=== PATIENT | female | born 1960 | race American Indian/Alaskan Native ===

== ENCOUNTER 2021-05-24 08:14 | Emergency (ER) | payer OTHER ==
[2021-05-24] MEDS ORDERED: ONDANSETRON 4 MG/2 ML INJ IM ONE (08:30)
[2021-05-24] MEDS ORDERED: ACETAMINOPHEN 500 MG TAB PO ONE (08:30)
--- NOTE | 2021-05-24 08:36 | Emergency Department Report ---
ED General Adult HPI - General Chief complaint: Back Pain/Injury Stated complaint: COVID POS, SOB Time Seen by Provider: 05/24/21 08:20 Source: patient Mode of arrival: Ambulatory Limitations: No Limitations - History of Present Illness Initial comments: Patient is 61 years old female with history of hypertension and gout. Patient stated that she was recently diagnosed with COVID-19. Patient also reported that she is fully vaccinated against Covid vaccine last dose was in April 26. Patient presented to the ED complaining of lower back pain associated with shortness of breath and nausea. Patient denied any fever or chills. Patient stated that she talk to her primary care physician and asked her to come to the ER to make sure that she does not have a kidney infection. Patient reported chills but no fever. No chest pain. Severity scale (0 -10): 9 - Related Data Home Medications Medication Instructions Recorded Confirmed Last Taken Colchicine [Colcrys] 0.6 mg PO DAILY 04/24/21 04/24/21 Unknown Famotidine [Pepcid] 10 mg PO DAILY 04/24/21 04/24/21 Unknown Fenofibrate 40 mg PO DAILY 04/24/21 04/24/21 Unknown Pravastatin [Pravachol] 20 mg PO QHS 04/24/21 04/24/21 Unknown Allergies Allergy/AdvReac Type Severity Reaction Status Date / Time naproxen [From Aleve] Allergy Hives Verified 04/22/21 17:09 ED Review of Systems ROS: Stated complaint: COVID POS, SOB Other details as noted in HPI Comment: All other systems reviewed and negative Constitutional: chills. denies: fever Respiratory: cough, shortness of breath Cardiovascular: palpitations. denies: chest pain Gastrointestinal: nausea. denies: abdominal pain, vomiting, diarrhea, constipation, hematemesis Musculoskeletal: denies: back pain Neurological: denies: headache, weakness, numbness, paresthesias, confusion ED Past Medical Hx - Past Medical History Hx Hypertension: Yes Hx Congestive Heart Failure: No Hx Diabetes: Yes Hx Asthma: No Hx COPD: No Additional medical history: GOUT/ HIGH CHOLESTROL - Surgical History Additional Surgical History: C SECTION X 2 / CYST REMOVAL X 1 / GASTRIC SLEEVE - Social History Smoking Status: Never Smoker - Medications Home Medications: Home Medications Medication Instructions Recorded Confirmed Last Taken Type Colchicine [Colcrys] 0.6 mg PO DAILY 04/24/21 04/24/21 Unknown History Famotidine [Pepcid] 10 mg PO DAILY 04/24/21 04/24/21 Unknown History Fenofibrate 40 mg PO DAILY 04/24/21 04/24/21 Unknown History Pravastatin [Pravachol] 20 mg PO QHS 04/24/21 04/24/21 Unknown History ED Physical Exam - General Limitations: No Limitations General appearance: alert, in no apparent distress - Head Head exam: Present: atraumatic, normocephalic, normal inspection - Eye Eye exam: Present: normal appearance, PERRL - ENT ENT exam: Present: normal exam, normal orophraynx, mucous membranes moist - Neck Neck exam: Present: normal inspection, full ROM. Absent: tenderness, meningismus - Respiratory Respiratory exam: Present: normal lung sounds bilaterally - Cardiovascular Cardiovascular Exam: Present: regular rate, normal rhythm, normal heart sounds - GI/Abdominal GI/Abdominal exam: Present: soft, normal bowel sounds. Absent: distended, tenderness, guarding, rebound, rigid, organomegaly, mass, bruit, pulsatile mass, hernia - Extremities Exam Extremities exam: Present: normal inspection, full ROM, normal capillary refill. Absent: tenderness - Back Exam Back exam: Present: normal inspection, full ROM. Absent: CVA tenderness (R), CVA tenderness (L) - Neurological Exam Neurological exam: Present: alert, oriented X3, CN II-XII intact, normal gait, reflexes normal - Psychiatric Psychiatric exam: Present: normal mood - Skin Skin exam: Present: warm, intact, normal color ED Course Vital Signs 05/24/21 05/24/21 05/24/21 08:21 13:03 13:05 Temperature 98.5 F 98.8 F 98.8 F Pulse Rate 105 H 73 73 Respiratory 16 14 12 Rate Blood Pressure 103/58 Blood Pressure 113/71 103/58 [Left] O2 Sat by Pulse 96 98 98 Oximetry ED Medical Decision Making - Lab Data Result diagrams: 05/24/21 09:19 05/24/21 09:19 - EKG Data -: EKG Interpreted by Oh EKG shows normal: sinus rhythm Rate: normal - Radiology Data Radiology results: report reviewed - Medical Decision Making Patient is 61 years old female with history of hypertension and gout. Patient stated that she was recently diagnosed with COVID-19. Patient also reported th at she is fully vaccinated against Covid vaccine last dose was in April 26. Patient presented to the ED complaining of lower back pain associated with shortness of breath and nausea. Patient denied any fever or chills. Patient stated that she talk to her primary care physician and asked her to come to the ER to make sure that she does not have a kidney infection. Patient reported chills but no fever. No chest pain. EKG is unremarkable. Labs reviewed and unremarkable also. Patient remained stable with a stable vital sign. Chest x-ray is negative for acute finding. Urine is unremarkable. Patient given prescription for Ultram and Zofran and advised to follow-up with her primary doctor in the next 2 to 3 days and to return to the ER if she develop any new symptoms. Critical care attestation.: If time is entered above; I have spent that time in minutes in the direct care of this critically ill patient, excluding procedure time. ED Disposition Clinical Impression: Acute back pain, Post-COVID chronic joint pain Disposition: HOME / SELF CARE / HOMELESS Is pt being admited?: No Condition: Stable Instructions: Pain Medicine Instructions, Acute Back Pain, Adult Referrals: PRIMARY CARE, [Primary Care Provider] - 3-5 Days
--- NOTE | 2021-05-24 08:58 | XRay Report ---
CHEST 1 VIEW INDICATION: Dyspnea. COMPARISON: 04/22/2021 FINDINGS: Support devices: None. Heart: Within normal limits. Lungs/Pleura: No acute air space or interstitial disease. Additional findings: None. IMPRESSION: No acute findings. No change since 04/22/2021. Signer Name: Eldon Calderon Jr, MD Signed: 05/24/2021 8:54 AM Workstation Name: [id number]
[2021-05-24 10:13] LABS: Basophils # (Auto) 0.1 K/mm3 (0.0-0.1); Basophils % (Auto) 2.2 % (0.0-1.8); Eosinophils % (Auto) 0.7 % (0.0-4.3); Hematocrit 34.6 % (30.3-42.9); Hemoglobin 11.3 gm/dl (10.1-14.3); Lymphocytes # (Auto) 1.1 K/mm3 (1.2-5.4); Lymphocytes % (Auto) 25.5 % (13.4-35.0); Mean Corpuscular HGB Conc 33 % (30-34); Mean Corpuscular Volume 90 fl (79-97); Monocytes # (Auto) 0.4 K/mm3 (0.0-0.8); Monocytes % (Auto) 8.4 % (0.0-7.3); Platelet Count 288 K/mm3 (140-440); Red Blood Count 3.84 M/mm3 (3.65-5.03); Red Cell Distribution Width 17.2 % (13.2-15.2)
[2021-05-24 10:41] LABS: Partial Thromboplastin Time 58.8 Sec. (24.2-36.6)
[2021-05-24 10:57] LABS: Bilirubin,Urine NEG (Negative); Blood,Urine NEG (Negative); Color,Urine Amber (Yellow); Mucus,Urine FEW /HPF
[2021-05-24 10:58] LABS: Protein,Urine >500 mg/dL (Negative)
[2021-05-24 11:09] LABS: BUN/Creatinine Ratio 13; Blood Urea Nitrogen 24 mg/dL (7-17); Calcium 8.9 mg/dL (8.4-10.2); Hemolysis Index 2
[2021-05-24 11:10] LABS: Albumin 3.6 g/dL (3.9-5); Bilirubin,Direct 0.3 mg/dL (0-0.2)
[2021-05-24 13:03] VITALS: BP 103/58
== END 2021-05-24 13:34 | disposition home or self-care (01) ==
LOC: ED 08:14
DX: G89.29 Other chronic pain (principal); M54.5 Low back pain; I10 Essential (primary) hypertension; E78.00 Pure hypercholesterolemia, unspecified; R79.1 Abnormal coagulation profile; E11.9 Type 2 diabetes mellitus without complications; Z98.890 Other specified postprocedural states; Z88.8 Allergy status to other drugs, medicaments and biological substances; Z79.899 Other long term (current) drug therapy
CPT/HCPCS: 36415; 71045; 80048; 80076; 81001; 82140; 84484; 85025; 85610; 85730; 87040; 96372; 99284; J2405

== ENCOUNTER 2021-11-03 05:11 | Emergency (ER) | payer SELFPAY ==
[2021-11-03] MEDS ORDERED: predniSONE 20 MG TAB PO ONE (08:12)
[2021-11-03] MEDS ORDERED: COLCHICINE 0.6 MG TAB PO ONE (08:13)
[2021-11-03] MEDS ORDERED: HYDROcodone/ACETAMINOPHEN 5-325 MG TAB PO ONE (08:13)
--- NOTE | 2021-11-03 09:05 | XRay Report ---
RIGHT KNEE 3 VIEWS INDICATION: pain and swelling R knee. COMPARISON: None. IMPRESSION: Moderate to large joint effusion is identified on the lateral image. Mild osteoarthriti c changes are identified in the medial compartment and patellofemoral space. Mild enthesophytes proje cting from the patella. No acute osseous injury or bone lesion is identified. Signer Name: Eldon Calderon Jr, MD Signed: 11/03/2021 9:01 AM Workstation Name: [id number]
--- NOTE | 2021-11-03 09:24 | Emergency Department Report ---
ED Extremity Problem HPI - General Chief complaint: Extremity Problem,Nontraumatic Stated complaint: SWOLLEN RIGHT LEG Time Seen by Provider: 11/03/21 08:06 Source: patient Mode of arrival: Wheelchair Limitations: No Limitations - History of Present Illness Initial comments: 61 yof with pmh of gout presents to ed for evaluation right knee pain. She stat es that she has had pain and swelling to right knee for past week, denies injury. She states that she has history of gout but this does not feel like a gout flare to her. She denies fever. MD Complaint: extremity pain, extremity swelling, joint swelling -: Gradual, week(s) (1) Location: right, knee History of Same: Yes -: No fever, No associated dyspnea, No associated chest pain Radiation: none Severity scale (0 -10): 10 Quality: aching, constant Consistency: constant Worsens with: weight bearing, walking, palpation Associated Symptoms: denies: chest pain, shortness of breath, fever - Related Data Home Medications Medication Instructions Recorded Confirmed Last Taken Colchicine [Colcrys] 0.6 mg PO DAILY 04/24/21 04/24/21 Unknown Famotidine [Pepcid] 10 mg PO DAILY 04/24/21 04/24/21 Unknown Fenofibrate 40 mg PO DAILY 04/24/21 04/24/21 Unknown Pravastatin [Pravachol] 20 mg PO QHS 04/24/21 04/24/21 Unknown Previous Rx's Medication Instructions Recorded Last Taken Type Ondansetron [Zofran Odt] 4 mg PO Q8HR PRN #14 tab.rapdis 05/24/21 Unknown Rx traMADoL [Ultram] 50 mg PO Q6HR PRN #14 tablet 05/24/21 Unknown Rx methylPREDNISolone [Medrol 4MG 4 mg PO DAILY #1 pack 11/03/21 Unknown Rx DOSEPAK (21 tabs)] Allergies Allergy/AdvReac Type Severity Reaction Status Date / Time naproxen [From Aleve] Allergy Hives Verified 04/22/21 17:09 ED Review of Systems ROS: Stated complaint: SWOLLEN RIGHT LEG Other details as noted in HPI Comment: All other systems reviewed and negative Constitutional: denies: chills, diaphoresis, fever, malaise, weakness Eyes: denies: eye pain, eye discharge ENT: denies: ear pain, dental pain, congestion Respiratory: denies: cough, shortness of breath, SOB with exertion, SOB at rest Cardiovascular: denies: chest pain, palpitations, dyspnea on exertion, orthopnea, edema, syncope, paroxysmal nocturnal dyspnea Endocrine: no symptoms reported Gastrointestinal: denies: abdominal pain, nausea, vomiting Genitourinary: denies: urgency, dysuria, frequency, hematuria, discharge Musculoskeletal: denies: back pain Skin: denies: rash, lesions Neurological: denies: headache, weakness, numbness Hematological/Lymphatic: denies: easy bleeding, easy bruising ED Past Medical Hx - Past Medical History Hx Hypertension: Yes Hx Congestive Heart Failure: No Hx Diabetes: Yes Hx Asthma: No Hx COPD: No Additional medical history: GOUT/ HIGH CHOLESTROL - Surgical History Additional Surgical History: C SECTION X 2 / CYST REMOVAL X 1 / GASTRIC SLEEVE - Social History Smoking Status: Never Smoker - Medications Home Medications: Home Medications Medication Instructions Recorded Confirmed Last Taken Type Colchicine [Colcrys] 0.6 mg PO DAILY 04/24/21 04/24/21 Unknown History Famotidine [Pepcid] 10 mg PO DAILY 04/24/21 04/24/21 Unknown History Fenofibrate 40 mg PO DAILY 04/24/21 04/24/21 Unknown History Pravastatin [Pravachol] 20 mg PO QHS 04/24/21 04/24/21 Unknown History Ondansetron [Zofran Odt] 4 mg PO Q8HR PRN #14 tab.rapdis 05/24/21 Unknown Rx traMADoL [Ultram] 50 mg PO Q6HR PRN #14 tablet 05/24/21 Unknown Rx methylPREDNISolone [Medrol 4MG 4 mg PO DAILY #1 pack 11/03/21 Unknown Rx DOSEPAK (21 tabs)] ED Physical Exam - General Limitations: No Limitations General appearance: alert, in no apparent distress - Head Head exam: Present: atraumatic, normocephalic - Eye Eye exam: Present: normal appearance. Absent: conjunctival injection - Neck Neck exam: Present: normal inspection - Respiratory Respiratory exam: Absent: respiratory distress - Cardiovascular Cardiovascular Exam: Present: regular rate - GI/Abdominal GI/Abdominal exam: Absent: distended - Expanded Lower Extremity Exam Right Knee exam: Present: tenderness, swelling, effusion. Absent: ecchymosis, def ormity, dislocation, erythema Lower Leg exam: Present: normal inspection. Absent: tenderness, swelling Ankle exam: Present: normal inspection, full ROM Foot/Toe exam: Present: normal inspection Neuro vascular tendon exam: Absent: no vascular compromise, pulse deficit, abnormal cap refill, extremity cold to touch Gait: Positive: observed and limited by pain - Back Exam Back exam: Present: normal inspection. Absent: tenderness, CVA tenderness (R), CVA tenderness (L), vertebral tenderness - Neurological Exam Neurological exam: Present: alert, oriented X3 - Psychiatric Psychiatric exam: Present: normal affect, normal mood - Skin Skin exam: Present: warm, dry, intact, normal color ED Course Vital Signs 11/03/21 11/03/21 07:44 09:35 Temperature 98.6 F 97.7 F Pulse Rate 82 67 Respiratory 18 18 Rate Blood Pressure 132/73 142/88 O2 Sat by Pulse 100 100 Oximetry ED Medical Decision Making - Radiology Data Radiology results: report reviewed, image reviewed Right knee xray IMPRESSION: Moderate to large joint effusion is identified on the lateral image. Mild osteoarthritic changes are identified in the medial compartment and patellofemoral space. Mild enthesophytes projecting from the patella. No acute osseous injury or bone lesion is identified. - Medical Decision Making 61 yof with pmh of gout presents to ed for evaluation right knee pain. She states that she has had pain and swelling to right knee for past week, denies injury. She states that she has history of gout but this does not feel like a gout flare to her. She denies fever. Right knee xray noted to have effusion but without any acute fracture or dislocation. She will be treated with 6 day coarse of steroids and advised to follow up with orthopedics for further evaluation and management. She verbalized understanding of and agreement with plan of care. Critical care attestation.: If time is entered above; I have spent that time in minutes in the direct care of this critically ill patient, excluding procedure time. ED Disposition Clinical Impression: Knee effusion, right Disposition: 01 HOME / SELF CARE / HOMELESS Is pt being admited?: No Does the pt Need Aspirin: No Condition: Stable Instructions: Knee Effusion, [id number] Additional Instructions: Take medications as prescribed. Follow-up with primary care provider or orthopedics for further evaluation and management. Return to the ER for any concerning symptoms. Prescriptions: methylPREDNISolone [Medrol 4MG DOSEPAK (21 tabs)] 4 mg PO DAILY #1 pack Referrals: MONTSERRAT HALE MD [Staff Physician] - 3-5 Days Time of Disposition: 09:24
[2021-11-03 09:40] VITALS: BP 142/88
== END 2021-11-03 09:39 | disposition home or self-care (01) ==
LOC: ED 05:11
DX: M25.461 Effusion, right knee (principal); F17.200 Nicotine dependence, unspecified, uncomplicated; Z88.6 Allergy status to analgesic agent; I10 Essential (primary) hypertension; E11.9 Type 2 diabetes mellitus without complications
CPT/HCPCS: 99283

== ENCOUNTER 2021-11-25 23:32 | Inpatient (IN) | payer SELFPAY ==
--- NOTE | 2021-11-25 23:59 | Consultation ---
Medications and Allergies Allergies Allergy/AdvReac Type Severity Reaction Status Date / Time naproxen [From Aleve] Allergy Hives Verified 04/22/21 17:09 Home Medications Medication Instructions Recorded Confirmed Last Taken Type Colchicine [Colcrys] 0.6 mg PO DAILY 04/24/21 04/24/21 Unknown History Famotidine [Pepcid] 10 mg PO DAILY 04/24/21 04/24/21 Unknown History Fenofibrate 40 mg PO DAILY 04/24/21 04/24/21 Unknown History Pravastatin [Pravachol] 20 mg PO QHS 04/24/21 04/24/21 Unknown History Ondansetron [Zofran Odt] 4 mg PO Q8HR PRN #14 tab.rapdis 05/24/21 Unknown Rx traMADoL [Ultram] 50 mg PO Q6HR PRN #14 tablet 05/24/21 Unknown Rx methylPREDNISolone [Medrol 4MG 4 mg PO DAILY #1 pack 11/03/21 Unknown Rx DOSEPAK (21 tabs)] Assessment and Plan [facility] Consult Note # Demographics Consult Type: Acute Stroke Level 1 (0-4.5 hrs) Patient Location: Emergency Room First Name: Mariluz Last Name: Ronel Date of : 1960 Age: 61 Gender: Female Facility: [facility] Time of Initial Page ( Time): 11/25/2021, 23:25 Time of Return Call (Eastern Time): 11/25/2021, 23:25 # HPI History: 61F at 22:30 heard to fall in kitchen. She says she passed out. Noted by EMS to have left droop and slurring of speech. No unilateral weakness noted. Patient denies blood thinner use. # Scores Time of exam and NIHSS ( Time): 11/25/2021, 23:57 Level of Consciousness 1a: [0] = Alert; keenly responsive LOC Questions 1b: [0] = Answers both questions correctly LOC Commands 1c: [0] = Performs both tasks correctly Best Gaze 2: [0] = Normal Visual 3: [0] = No visual loss Facial Palsy 4: [1] = Minor paralysis Motor Arm Left 5a: [0] = No drift Motor Arm Right 5b: [0] = No drift Motor Leg Left 6a: [0] = No drift Motor Leg Right 6b: [0] = No drift Limb Ataxia 7: [0] = Absent Sensory 8: [0] = Normal Best Language 9: [0] = No aphasia Dysarthria 10: [1] = [id number] dysarthria Extinction and Inattention 11: [0] = No abnormality NIHSS Total: 2 # Assessment Impression: Ischemic Stroke (Acute) with currently estimated to be non-disabling deficit as best I can determine. # Plan Thrombolytic/Intervention: NOT IV Thrombolysis or IA Intervention candidate Thrombolytic Exclusion (< 3 hour window): non-disabling deficit Intraarterial Exclusion: other pending CTA head/neck. Target Blood Pressure: SBP < 220 Imaging: (urgency: STAT): CT Angiogram Head and CT Angiogram Neck Imaging: (urgency: routine): MRI Brain without contrast Medication: aspirin 81 mg daily start statin with goal of LDL < 70 Other: LDL < 70 If patient has any neurological deterioration please call me back immediately permissive hypertension telemetry monitoring I have discussed my recommendations with the referring provider Disposition: admit # Logistics Telemedicine: Interactive 2 way audio and visual telecommunication technology was utilized during this visit
--- NOTE | 2021-11-26 00:02 | Cat Scan Report ---
CT HEAD WITHOUT CONTRAST INDICATION / CLINICAL INFORMATION: CODE STROKE PROTOCOL!!! Altered Mental Status. TECHNIQUE: CT head was performed without administration of intravenous contrast. All CT scans at this location are performed using CT dose reduction for ALARA by means of automated exposure control. COMPARISON: None available. FINDINGS: CEREBRAL PARENCHYMA: No significant abnormality. No acute territorial infarct. HEMORRHAGE: None. EXTRA-AXIAL SPACES: Normal in size and morphology for the patient's age. VENTRICULAR SYSTEM: Normal in size and morphology for the patient's age. MIDLINE SHIFT / HERNIATION: None. CEREBELLUM / BRAINSTEM: No significant abnormality. ORBITS: No significant abnormality. SOFT TISSUES: No significant abnormality. SKULL: No significant abnormality. PARANASAL SINUSES / MASTOID AIR CELLS: Normal as visualized. ADDITIONAL FINDINGS: None. IMPRESSION: 1. No acute intracranial abnormality. CODE STROKE Time of Communication (NOTE TELLER/CDT): 2256 hours Licensed Practitioner Receiving Report: Dr. Loaiza Signer Name: Andrea Gracia II, MD Signed: 11/25/2021 11:58 PM Workstation Name: [id number]
[2021-11-26 00:06] LABS: Basophils % (Auto) 0.7 % (0.0-1.8); Eosinophils # (Auto) 0.2 K/mm3 (0.0-0.4); Eosinophils % (Auto) 2.8 % (0.0-4.3); Hematocrit 41.3 % (30.3-42.9); Hemoglobin 13.9 gm/dl (10.1-14.3); Lymphocytes # (Auto) 1.6 K/mm3 (1.2-5.4); Lymphocytes % (Auto) 27.4 % (13.4-35.0); Mean Corpuscular HGB Conc 34 % (30-34); Mean Corpuscular Volume 90 fl (79-97); Monocytes # (Auto) 0.7 K/mm3 (0.0-0.8); Monocytes % (Auto) 10.9 % (0.0-7.3); Platelet Count 264 K/mm3 (140-440); Red Blood Count 4.57 M/mm3 (3.65-5.03); Red Cell Distribution Width 15.6 % (13.2-15.2)
[2021-11-26 00:17] LABS: INR 0.84 (0.87-1.13)
[2021-11-26 00:18] LABS: Thrombin Time 16.5 Sec. (15.1-19.6)
[2021-11-26 00:23] LABS: Creatine Kinase MB 1.5 ng/mL (0.0-4.0)
[2021-11-26 00:25] LABS: Alanine Aminotransferase 14 units/L (7-56); Albumin 3.4 g/dL (3.9-5); BUN/Creatinine Ratio 20; Blood Urea Nitrogen 22 mg/dL (7-17); Calcium 8.4 mg/dL (8.4-10.2); Hemolysis Index 11
--- NOTE | 2021-11-26 02:13 | Cat Scan Report ---
CT angio neck, CT angio head INDICATION / CLINICAL INFORMATION: POST-CODE STROKE PROTOCOL!!! Stroke-Like symptoms. TECHNIQUE: CT angiography of head and neck was performed prior to and following administration of 100 cc of Omnipaque 350 intravenous contrast. In addition to axial source images, reconstructed coronal and sagittal MPR series as well as thin slab coronal and sagittal MIP series were provided. . All C T scans at this location are performed using CT dose reduction for ALARA by means of automated exposu re control. COMPARISON: None available. FINDINGS: VASCULAR FINDINGS: INTRACRANIAL CIRCULATION: RIGHT ICA: The right petrous, cavernous, supraclinoid segments of the ICA demonstrate no significant abnormalities. The right supraclinoid bifurcation is patent. The right A1 segment is patent. RIGHT TIMMY: The right anterior cerebral artery demonstrates no evidence of aneurysm, severe stenosis, or occlusion. RIGHT MCA: The right MCA demonstrates no evidence of large vessel occlusion, aneurysm formation, or s evere stenosis. LEFT ICA: The left petrous, cavernous, supraclinoid segments of the ICA demonstrate no significant ab normalities. The left supraclinoid bifurcation is patent. The left A1 segment is patent. LEFT TIMMY: The left TIMMY demonstrates no evidence of aneurysm formation, occlusion, or severe stenosis. LEFT MCA: The left MCA demonstrates no evidence of large vessel occlusion, aneurysm formation, or sev ere stenosis. ANTERIOR COMMUNICATING ARTERY: At the junction of the anterior communicating artery and left A1 segme nt, a saccular aneurysm measuring 4.5 x 3.9 x 3.1 cm is demonstrated no evidence of rupture. POSTERIOR COMMUNICATING ARTERIES: Posterior communicating arteries are thought to be anatomically abs ent. At the expected location of the left posterior communicating artery origin, there is a small sac cular aneurysm measuring 3 mm abutting the posterior margin of the left supraclinoid ICA. Additional considerations could reflect prominent infundibulum. VERTEBRAL CONFLUENCE: The vertebral confluence demonstrates no significant abnormality. BASILAR ARTERY: Basilar artery demonstrates no significant abnormality. Bifurcation and bilateral P1 segments demonstrate patency without evidence of aneurysm formation, significant stenosis, or occlusi on. RIGHT VENEER REPAIRER MACHINE: The right VENEER REPAIRER MACHINE demonstrates no evidence of occlusion, aneurysm formation, or severe stenosi s. LEFT VENEER REPAIRER MACHINE: The left VENEER REPAIRER MACHINE demonstrates no evidence of occlusion, aneurysm formation, or severe stenosis. DURAL SINUSES AND CORTICAL DURAL VEINS: The dural sinuses and cortical dural veins demonstrate no sig nificant abnormalities. NONVASCULAR FINDINGS: The intracranial contents, intraorbital contents, paranasal sinuses, mastoid air cells, soft tissues and musculature of the face, soft tissues and musculature of the neck, thyroid, and upper chest demon strate no significant abnormalities. IMPRESSION: 1. 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 No evidence of acute hemorrhage/contrast extravasation. 2. No large vessel occlusion. 3. Dural sinuses are widely patent. Signer Name: Andrea Gracia II, MD Signed: 11/26/2021 2:08 AM Workstation Name: [id number]
--- NOTE | 2021-11-26 02:13 | Cat Scan Report ---
CT angio neck, CT angio head INDICATION / CLINICAL INFORMATION: POST-CODE STROKE PROTOCOL!!! Stroke-Like symptoms. TECHNIQUE: CT angiography of head and neck was performed prior to and following administration of 100 cc of Omnipaque 350 intravenous contrast. In addition to axial source images, reconstructed coronal and sagittal MPR series as well as thin slab coronal and sagittal MIP series were provided. . All C T scans at this location are performed using CT dose reduction for ALARA by means of automated exposu re control. COMPARISON: None available. FINDINGS: VASCULAR FINDINGS: INTRACRANIAL CIRCULATION: RIGHT ICA: The right petrous, cavernous, supraclinoid segments of the ICA demonstrate no significant abnormalities. The right supraclinoid bifurcation is patent. The right A1 segment is patent. RIGHT TIMMY: The right anterior cerebral artery demonstrates no evidence of aneurysm, severe stenosis, or occlusion. RIGHT MCA: The right MCA demonstrates no evidence of large vessel occlusion, aneurysm formation, or s evere stenosis. LEFT ICA: The left petrous, cavernous, supraclinoid segments of the ICA demonstrate no significant ab normalities. The left supraclinoid bifurcation is patent. The left A1 segment is patent. LEFT TIMMY: The left TIMMY demonstrates no evidence of aneurysm formation, occlusion, or severe stenosis. LEFT MCA: The left MCA demonstrates no evidence of large vessel occlusion, aneurysm formation, or sev ere stenosis. ANTERIOR COMMUNICATING ARTERY: At the junction of the anterior communicating artery and left A1 segme nt, a saccular aneurysm measuring 4.5 x 3.9 x 3.1 cm is demonstrated no evidence of rupture. POSTERIOR COMMUNICATING ARTERIES: Posterior communicating arteries are thought to be anatomically abs ent. At the expected location of the left posterior communicating artery origin, there is a small sac cular aneurysm measuring 3 mm abutting the posterior margin of the left supraclinoid ICA. Additional considerations could reflect prominent infundibulum. VERTEBRAL CONFLUENCE: The vertebral confluence demonstrates no significant abnormality. BASILAR ARTERY: Basilar artery demonstrates no significant abnormality. Bifurcation and bilateral P1 segments demonstrate patency without evidence of aneurysm formation, significant stenosis, or occlusi on. RIGHT PLAYER DEVELOPMENT EXECUTIVE: The right PLAYER DEVELOPMENT EXECUTIVE demonstrates no evidence of occlusion, aneurysm formation, or severe stenosi s. LEFT PLAYER DEVELOPMENT EXECUTIVE: The left PLAYER DEVELOPMENT EXECUTIVE demonstrates no evidence of occlusion, aneurysm formation, or severe stenosis. DURAL SINUSES AND CORTICAL DURAL VEINS: The dural sinuses and cortical dural veins demonstrate no sig nificant abnormalities. NONVASCULAR FINDINGS: The intracranial contents, intraorbital contents, paranasal sinuses, mastoid air cells, soft tissues and musculature of the face, soft tissues and musculature of the neck, thyroid, and upper chest demon strate no significant abnormalities. IMPRESSION: 1. 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 No evidence of acute hemorrhage/contrast extravasation. 2. No large vessel occlusion. 3. Dural sinuses are widely patent. Signer Name: Andrea Gracia II, MD Signed: 11/26/2021 2:08 AM Workstation Name: [id number]
--- NOTE | 2021-11-26 03:59 | XRay Report ---
LEFT FOOT 3 VIEWS. INDICATION / CLINICAL INFORMATION: footb inj. deformed toe COMPARISON: None available. FINDINGS: BONES / JOINT(S): An acute fracture involving the base of the fourth toe proximal phalanx is present with minimal lateral angulation of the distal fracture fragments. No involvement of the articular jesus face. No significant arthritis. SOFT TISSUES: No significant abnormality. ADDITIONAL FINDINGS: None. IMPRESSION: 1. Acute fracture involving the base of the fourth toe proximal phalanx. Signer Name: Andrea Gracia II, MD Signed: 11/26/2021 3:55 AM Workstation Name: [id number]
[2021-11-26] MEDS ORDERED: MORPHINE 2 MG/1 ML INJ IV PRN (04:18)
[2021-11-26] MEDS ORDERED: HYDROmorphone 1 MG/1 ML INJ IV PRN (04:18)
[2021-11-26] MEDS ORDERED: ACETAMINOPHEN 325 MG TAB PO PRN (04:18)
[2021-11-26] MEDS ORDERED: ONDANSETRON 4 MG/2 ML INJ IV PRN (04:18)
--- NOTE | 2021-11-26 04:28 | History and Physical Report ---
History of Present Illness Date of examination: 11/26/21 Date of admission: 11/26/21 Chief complaint: Fall Passed out History of present illness: 61 with history of hypertension, diabetes, gout, high cholesterol was brought to the emergency room because of fall in kitchen at 22.30. She says she passed out. Noted by EMS to have left droop and slurring of speech. No unilateral weakness noted. Patient denies blood thinner use. Initial CT scan is negative, subsequently patient was seen and evaluated by the ER physician so we are going to admit the patient we will put the patient on CVA pathway we consult neurology for evaluation and order MRI of the brain Past History Past Medical History: diabetes, hypertension, hyperlipidemia, other (Gout) Past Surgical History: Other (C SECTION X 2 / CYST REMOVAL X 1 / GASTRIC SLEEVE) Social history: other (Never a smoker) Family history: no significant family history Medications and Allergies Allergies Allergy/AdvReac Type Severity Reaction Status Date / Time naproxen [From Aleve] Allergy Hives Verified 04/22/21 17:09 Home Medications Medication Instructions Recorded Confirmed Last Taken Type Colchicine [Colcrys] 0.6 mg PO DAILY 04/24/21 04/24/21 Unknown History Famotidine [Pepcid] 10 mg PO DAILY 04/24/21 04/24/21 Unknown History Fenofibrate 40 mg PO DAILY 04/24/21 04/24/21 Unknown History Pravastatin [Pravachol] 20 mg PO QHS 04/24/21 04/24/21 Unknown History Ondansetron [Zofran Odt] 4 mg PO Q8HR PRN #14 tab.rapdis 05/24/21 Unknown Rx traMADoL [Ultram] 50 mg PO Q6HR PRN #14 tablet 05/24/21 Unknown Rx methylPREDNISolone [Medrol 4MG 4 mg PO DAILY #1 pack 11/03/21 Unknown Rx DOSEPAK (21 tabs)] Active Meds: Active Medications Acetaminophen (Acetaminophen 325 Mg Tab) 650 mg PO Q4H PRN PRN Reason: Pain MILD(1-3)/Fever >100.5/WALKER Aspirin (Aspirin 325 Mg Tab) 325 mg PO QDAY CHANTAL Atorvastatin Calcium (Atorvastatin 40 Mg Tab) 40 mg PO QHS CHANTAL Colchicine (Colchicine 0.6 Mg Tab) 0.6 mg PO DAILY CHANTAL Famotidine (Famotidine 20 Mg Tab) 20 mg PO BID [facility] Heparin Sodium (Porcine) (Heparin 5,000 Unit/1 Ml Vial) 5,000 unit SUB-Q Q12HR CHANTAL Hydromorphone HCl (Hydromorphone 1 Mg/1 Ml Inj) 0.5 mg IV Q3H PRN PRN Reason: Pain , Severe (7-10) Sodium Chloride (Nacl 0.9% 1000 Ml) 1,000 mls @ 100 mls/hr IV DIRECT CHANTAL Miscellaneous Medication (Fenofibrate [Fenofibrate]) 40 mg PO DAILY [facility] Morphine Sulfate (Morphine 2 Mg/1 Ml Inj) 2 mg IV Q4H PRN PRN Reason: Pain, Moderate (4-6) Ondansetron HCl (Ondansetron 4 Mg/2 Ml Inj) 4 mg IV Q8H PRN PRN Reason: Nausea And Vomiting Sodium Chloride (Sodium Chloride 0.9% 10 Ml Flush Syringe) 10 ml IV BID CHANTAL Sodium Chloride (Sodium Chloride 0.9% 10 Ml Flush Syringe) 10 ml IV PRN PRN PRN Reason: LINE FLUSH Sodium Chloride (Sodium Chloride 0.9% 10 Ml Flush Syringe) 10 ml INJ PRN PRN PRN Reason: LINE FLUSH Review of Systems All systems: negative Constitutional: fatigue, weakness Cardiovascular: syncope Neurological: change in speech, other (Facial droop.) Exam - Constitutional Vitals: Temp Pulse Resp BP Pulse Ox 98.9 F 88 16 160/96 98 11/25/21 23:34 11/25/21 23:34 11/25/21 23:34 11/25/21 23:34 11/25/21 23:34 General appearance: Present: no acute distress, well-nourished - EENT Eyes: Present: PERRL ENT: hearing intact, clear oral mucosa - Neck Neck: Present: supple, normal ROM - Respiratory Respiratory effort: normal Respiratory: bilateral: CTA - Cardiovascular Heart Sounds: Present: S1 & S2. Absent: rub, click - Extremities Extremities: pulses symmetrical, No edema Peripheral Pulses: within normal limits - Abdominal General gastrointestinal: Present: soft, non-tender, non-distended, normal bowel sounds Female genitourinary: Present: normal - Integumentary Integumentary: Present: clear, warm, dry - Musculoskeletal Musculoskeletal: gait normal, strength equal bilaterally - Psychiatric Psychiatric: appropriate mood/affect, intact judgment & insight - Neurologic Neurologic: CNII-XII intact, moves all extremities HEART Score - HEART Score Troponin: Troponin T < 0.010 ng/mL (0.00-0.029) 11/25/21 23:54 Results - Labs CBC & Chem 7: 11/25/21 23:54 11/25/21 23:54 Labs: Laboratory Last Values WBC 6.0 K/mm3 (4.5-11.0) 11/25/21 23:54 RBC 4.57 M/mm3 (3.65-5.03) 11/25/21 23:54 Hgb 13.9 gm/dl (10.1-14.3) 11/25/21 23:54 Hct 41.3 % (30.3-42.9) 11/25/21 23:54 MCV 90 fl (79-97) 11/25/21 23:54 MCH 30 pg (28-32) 11/25/21 23:54 MCHC 34 % (30-34) 11/25/21 23:54 RDW 15.6 % (13.2-15.2) H 11/25/21 23:54 Plt Count 264 K/mm3 (140-440) 11/25/21 23:54 Lymph % (Auto) 27.4 % (13.4-35.0) 11/25/21 23:54 [place] % (Auto) 10.9 % (0.0-7.3) H 11/25/21 23:54 Eos % (Auto) 2.8 % (0.0-4.3) 11/25/21 23:54 Baso % (Auto) 0.7 % (0.0-1.8) 11/25/21 23:54 Lymph # (Auto) 1.6 K/mm3 (1.2-5.4) 11/25/21 23:54 [place] # (Auto) 0.7 K/mm3 (0.0-0.8) 11/25/21 23:54 Eos # (Auto) 0.2 K/mm3 (0.0-0.4) 11/25/21 23:54 Baso # (Auto) 0.0 K/mm3 (0.0-0.1) 11/25/21 23:54 Seg Neutrophils % 58.2 % (40.0-70.0) 11/25/21 23:54 Seg Neutrophils # 3.5 K/mm3 (1.8-7.7) 11/25/21 23:54 PT 12.4 Sec. (12.2-14.9) 11/25/21 23:54 INR 0.84 (0.87-1.13) L 11/25/21 23:54 APTT 27.0 Sec. (24.2-36.6) 11/25/21 23:54 Thrombin Time 16.5 Sec. (15.1-19.6) 11/25/21 23:54 Sodium 137 mmol/L (137-145) 11/25/21 23:54 Potassium 3.7 mmol/L (3.6-5.0) 11/25/21 23:54 Chloride 103.5 mmol/L (98-107) 11/25/21 23:54 Carbon Dioxide 20 mmol/L (22-30) L 11/25/21 23:54 Anion Gap 17 mmol/L 11/25/21 23:54 BUN 22 mg/dL (7-17) H 11/25/21 23:54 Creatinine 1.1 mg/dL (0.6-1.2) 11/25/21 23:54 Estimated GFR > 60 ml/min 11/25/21 23:54 BUN/Creatinine Ratio 20 % 11/25/21 23:54 Glucose 141 mg/dL (65-100) H 11/25/21 23:54 Calcium 8.4 mg/dL (8.4-10.2) 11/25/21 23:54 Total Bilirubin 0.50 mg/dL (0.1-1.2) 11/25/21 23:54 AST 15 units/L (5-40) 11/25/21 23:54 ALT 14 units/L (7-56) 11/25/21 23:54 Alkaline Phosphatase 73 units/L (35-129) 11/25/21 23:54 Total Creatine Kinase 42 units/L (30-135) 11/25/21 23:54 CK-MB (CK-2) 1.5 ng/mL (0.0-4.0) 11/25/21 23:54 CK-MB (CK-2) Rel Index 3.5 (0-4) 11/25/21 23:54 Troponin T < 0.010 ng/mL (0.00-0.029) 11/25/21 23:54 Total Protein 7.0 g/dL (6.3-8.2) 11/25/21 23:54 Albumin 3.4 g/dL (3.9-5) L 11/25/21 23:54 Albumin/Globulin Ratio 0.9 % 11/25/21 23:54 Plasma/Serum Alcohol < 0.01 % (0-0.07) 11/25/21 23:54 - Imaging and Cardiology CT Scan - head: report reviewed Assessment and Plan VTE prophylaxis?: Chemical Plan of care discussed with patient/family: Yes - Patient Problems (1) Ischemic stroke Current Visit: Yes Status: Acute Plan to address problem: Admit the patient to the medical telemetry. Aspirin 325 mg p.o. daily. Lipitor 40 mg p.o. daily. MRI of the brain with and without contrast. MRI of the brain and neck with and without contrast. PT OT any speech evaluation. Neurology evaluation (2) Hypertension Current Visit: Yes Status: Acute Plan to address problem: Hydralazine 10 mg IV every 6 hours as needed. We continue the home medication (3) Hyperlipidemia Current Visit: Yes Status: Acute Plan to address problem: Lipitor 40 mg p.o. daily. Recheck the lipid panel (4) Diabetes Current Visit: Yes Status: Acute Plan to address problem: We will put the patient on Humalog sliding scale moderate dose. Diabetic education (5) DVT prophylaxis Current Visit: No Status: Acute Plan to address problem: Heparin 5000 units subcu every 12 hours for DVT prophylaxis. Pepcid 20 mg p.o. twice daily for GI prophylaxis. Patient is a full code
--- NOTE | 2021-11-26 05:22 | Emergency Department Report ---
ED Neuro Deficit HPI - General Chief Complaint: Neuro Symptoms/Deficit Stated Complaint: STROKE Time Seen by Provider: 11/25/21 23:43 Source: EMS Mode of arrival: Stretcher Limitations: Altered Mental Status, Physical Limitation - History of Present Illness Initial Comments: This patient states that she was at the microwave about to take fluid out when she suddenly had some difficulty opening the door with her right upper extremity. Subsequent to that the patient fell sustaining an injury to her left foot. Her speech became slurred with facial droop and inability to close her eyes tightly on the left side. A code stroke was called and the patient was immediately taken to CT for evaluation. In CT the patient was evaluated by the neurologist Dr. Alonso. -: Sudden Location: speech, left face, right arm, right leg Place: home Quality: weak Improves With: none On Anticoagulants: No Context: sudden onset Associated Symptoms: syncope (Questionable), weakness (Right side). denies: confusion, chest pain, cough, diaphoresis, shortness of breath Treatments Prior to Arrival: none - Related Data Home Medications: Home Medications Medication Instructions Recorded Confirmed Last Taken Colchicine [Colcrys] 0.6 mg PO DAILY 04/24/21 04/24/21 Unknown Famotidine [Pepcid] 10 mg PO DAILY 04/24/21 04/24/21 Unknown Fenofibrate 40 mg PO DAILY 04/24/21 04/24/21 Unknown Pravastatin [Pravachol] 20 mg PO QHS 04/24/21 04/24/21 Unknown Previous Rx's Medication Instructions Recorded Last Taken Type Ondansetron [Zofran Odt] 4 mg PO Q8HR PRN #14 tab.rapdis 05/24/21 Unknown Rx traMADoL [Ultram] 50 mg PO Q6HR PRN #14 tablet 05/24/21 Unknown Rx methylPREDNISolone [Medrol 4MG 4 mg PO DAILY #1 pack 11/03/21 Unknown Rx DOSEPAK (21 tabs)] Allergies/Adverse Reactions: Allergies Allergy/AdvReac Type Severity Reaction Status Date / Time naproxen [From Aleve] Allergy Hives Verified 04/22/21 17:09 ED Review of Systems ROS: Stated complaint: STROKE Other details as noted in HPI Comment: All other systems reviewed and negative Constitutional: denies: chills, fever Eyes: denies: eye pain, eye discharge, vision change ENT: denies: ear pain, throat pain Respiratory: denies: cough, shortness of breath, wheezing Cardiovascular: denies: chest pain, palpitations Endocrine: no symptoms reported Gastrointestinal: denies: abdominal pain, nausea, diarrhea Genitourinary: denies: urgency, dysuria, discharge Musculoskeletal: other (Pain involving the left foot) Skin: denies: rash, lesions Neurological: weakness. denies: headache, numbness, paresthesias, confusion Psychiatric: denies: anxiety, depression Hematological/Lymphatic: denies: easy bleeding, easy bruising ED Past Medical Hx - Past Medical History Hx Hypertension: Yes Hx Congestive Heart Failure: No Hx Diabetes: Yes Hx Asthma: No Hx COPD: No Additional medical history: GOUT/ HIGH CHOLESTROL - Surgical History Additional Surgical History: C SECTION X 2 / CYST REMOVAL X 1 / GASTRIC SLEEVE - Social History Smoking Status: Never Smoker - Medications Home Medications: Home Medications Medication Instructions Recorded Confirmed Last Taken Type Colchicine [Colcrys] 0.6 mg PO DAILY 04/24/21 04/24/21 Unknown History Famotidine [Pepcid] 10 mg PO DAILY 04/24/21 04/24/21 Unknown History Fenofibrate 40 mg PO DAILY 04/24/21 04/24/21 Unknown History Pravastatin [Pravachol] 20 mg PO QHS 04/24/21 04/24/21 Unknown History Ondansetron [Zofran Odt] 4 mg PO Q8HR PRN #14 tab.rapdis 05/24/21 Unknown Rx traMADoL [Ultram] 50 mg PO Q6HR PRN #14 tablet 05/24/21 Unknown Rx methylPREDNISolone [Medrol 4MG 4 mg PO DAILY #1 pack 11/03/21 Unknown Rx DOSEPAK (21 tabs)] ED Neuro Physical Exam - General Limitations: Altered Mental Status, Physical Limitation General appearance: alert, in no apparent distress - Head Head exam: Present: atraumatic, normocephalic - Eye Eye exam: Present: normal appearance, PERRL, other (The patient has some diffic ulty closing the left eye tightly) Pupils: Present: normal accommodation - ENT ENT exam: Present: normal exam, normal orophraynx, mucous membranes moist - Neck Neck exam: Present: normal inspection, full ROM. Absent: tenderness - Respiratory Respiratory exam: Present: normal lung sounds bilaterally. Absent: respiratory distress, wheezes, rales - Cardiovascular Cardiovascular Exam: Present: regular rate, normal rhythm. Absent: systolic murmur, diastolic murmur, rubs, gallop - GI/Abdominal GI/Abdominal exam: Present: soft. Absent: distended, tenderness - Rectal Rectal exam: Present: deferred - External exam: Present: normal external exam ED Course Vital Signs 11/25/21 11/26/21 11/26/21 23:34 05:15 05:40 Temperature 98.9 F 97.9 F Pulse Rate 88 68 Respiratory 16 20 18 Rate Blood Pressure 130/79 Blood Pressure 160/96 [Left] O2 Sat by Pulse 98 98 97 Oximetry - Lab Data Result diagrams: 11/25/21 23:54 11/25/21 23:54 Lab Results 11/25/21 11/25/21 11/25/21 Range/Units 23:54 23:54 23:54 WBC 6.0 (4.5-11.0) K/mm3 RBC 4.57 (3.65-5.03) M/mm3 Hgb 13.9 (10.1-14.3) gm/dl Hct 41.3 (30.3-42.9) % MCV 90 (79-97) fl MCH 30 (28-32) pg MCHC 34 (30-34) % RDW 15.6 H (13.2-15.2) % Plt Count 264 (140-440) K/mm3 Lymph % (Auto) 27.4 (13.4-35.0) % [place] % (Auto) 10.9 H (0.0-7.3) % Eos % (Auto) 2.8 (0.0-4.3) % Baso % (Auto) 0.7 (0.0-1.8) % Lymph # (Auto) 1.6 (1.2-5.4) K/mm3 [place] # (Auto) 0.7 (0.0-0.8) K/mm3 Eos # (Auto) 0.2 (0.0-0.4) K/mm3 Baso # (Auto) 0.0 (0.0-0.1) K/mm3 Seg Neutrophils % 58.2 (40.0-70.0) % Seg Neutrophils # 3.5 (1.8-7.7) K/mm3 PT 12.4 (12.2-14.9) Sec. INR 0.84 L (0.87-1.13) APTT 27.0 (24.2-36.6) Sec. Thrombin Time 16.5 (15.1-19.6) Sec. Sodium (137-145) mmol/L Potassium (3.6-5.0) mmol/L Chloride (98-107) mmol/L Carbon Dioxide (22-30) mmol/L Anion Gap mmol/L BUN (7-17) mg/dL Creatinine (0.6-1.2) mg/dL Estimated GFR ml/min BUN/Creatinine Ratio % Glucose (65-100) mg/dL Calcium (8.4-10.2) mg/dL Total Bilirubin (0.1-1.2) mg/dL AST (5-40) units/L ALT (7-56) units/L Alkaline Phosphatase (35-129) units/L Total Creatine Kinase 42 (30-135) units/L CK-MB (CK-2) 1.5 (0.0-4.0) ng/mL CK-MB (CK-2) Rel Index 3.5 (0-4) Troponin T < 0.010 (0.00-0.029) ng/mL Total Protein (6.3-8.2) g/dL Albumin (3.9-5) g/dL Albumin/Globulin Ratio % Plasma/Serum Alcohol (0-0.07) % 11/25/21 11/25/21 Range/Units 23:54 23:54 WBC (4.5-11.0) K/mm3 RBC (3.65-5.03) M/mm3 Hgb (10.1-14.3) gm/dl Hct (30.3-42.9) % MCV (79-97) fl MCH (28-32) pg MCHC (30-34) % RDW (13.2-15.2) % Plt Count (140-440) K/mm3 Lymph % (Auto) (13.4-35.0) % [place] % (Auto) (0.0-7.3) % Eos % (Auto) (0.0-4.3) % Baso % (Auto) (0.0-1.8) % Lymph # (Auto) (1.2-5.4) K/mm3 [place] # (Auto) (0.0-0.8) K/mm3 Eos # (Auto) (0.0-0.4) K/mm3 Baso # (Auto) (0.0-0.1) K/mm3 Seg Neutrophils % (40.0-70.0) % Seg Neutrophils # (1.8-7.7) K/mm3 PT (12.2-14.9) Sec. INR (0.87-1.13) APTT (24.2-36.6) Sec. Thrombin Time (15.1-19.6) Sec. Sodium 137 (137-145) mmol/L Potassium 3.7 (3.6-5.0) mmol/L Chloride 103.5 (98-107) mmol/L Carbon Dioxide 20 L (22-30) mmol/L Anion Gap 17 mmol/L BUN 22 H (7-17) mg/dL Creatinine 1.1 (0.6-1.2) mg/dL Estimated GFR > 60 ml/min BUN/Creatinine Ratio 20 % Glucose 141 H (65-100) mg/dL Calcium 8.4 (8.4-10.2) mg/dL Total Bilirubin 0.50 (0.1-1.2) mg/dL AST 15 (5-40) units/L ALT 14 (7-56) units/L Alkaline Phosphatase 73 (35-129) units/L Total Creatine Kinase (30-135) units/L CK-MB (CK-2) (0.0-4.0) ng/mL CK-MB (CK-2) Rel Index (0-4) Troponin T (0.00-0.029) ng/mL Total Protein 7.0 (6.3-8.2) g/dL Albumin 3.4 L (3.9-5) g/dL Albumin/Globulin Ratio 0.9 % Plasma/Serum Alcohol < 0.01 (0-0.07) % - Radiology Data Radiology results: report reviewed Per the radiologist the CT scan was noted to be negative. The chest x-ray was also reviewed and this does not show any pathology. The CTA of the head shows a saccular aneurysm of the posterior communicating artery which does not show any evidence of bleeding Critical Care Time: Yes Critical care time in (mins) excluding proc time.: 58 Critical care attestation.: If time is entered above; I have spent that time in minutes in the direct care of this critically ill patient, excluding procedure time. ED Disposition Clinical Impression: Weakness, Transient ischemic attack, Fracture of toe of left foot, Brain aneurysm Disposition: ADMITTED INPATIENT Condition: Stable
--- NOTE | 2021-11-26 14:56 | Event Note ---
Date: 11/26/21 Patient seen and examined 61-year-old female admitted to the hospital after having a fall episode followed by slurred speech and facial droop Admitted with a stroke work-up CTA head and neck showed brain aneurysm, consulted neurosurgeon Left foot x-ray also suggestive of left fourth toe proximal fracture, consulted orthopedics Continue to follow clinically, pending MRI brain, follow consultants recommendation Continue aspirin and statin and blood pressure management Cardiac diet -It took me about 28 minutes to reevaluate and reasses this patient, discussed with RN/CM, review medical documents, lab results, imaging, medication list and placing order.
[2021-11-26] MEDS: FAMOTIDINE 20 MG TAB PO SCH ×2 (15:41→22:05)
[2021-11-26] MEDS: ASPIRIN 325 MG TAB PO SCH (15:42)
[2021-11-26] MEDS: COLCHICINE 0.6 MG TAB PO SCH (15:42)
[2021-11-26] MEDS: FENOFIBRATE 48 MG TAB PO SCH (15:42)
[2021-11-26] MEDS: SODIUM CHLORIDE 0.9% 1000 ML 1,000 ML IV SCH (15:52)
[2021-11-26] MEDS: HEPARIN 5,000 UNIT/1 ML VIAL SUB-Q SCH ×2 (15:53→22:05)
--- NOTE | 2021-11-26 16:26 | Magnetic Resonance Report ---
NONENHANCED MR SCAN OF THE BRAIN: INDICATION / CLINICAL INFORMATION: stroke, HEADACHES, SYNCOPE. TECHNIQUE: Multiplanar, multisequence MR images of the brain obtained. COMPARISON: CT scan of the head obtained earlier today FINDINGS: BRAIN / INTRACRANIAL CONTENTS: No acute ischemia, acute hemorrhage, mass effect, midline shift, or hy drocephalus. No chronic infarct or atrophy. White matter lesions in both cerebral hemispheres (Fazek as 1) due to chronic small vessel disease. Brainstem and cerebellar hemispheres are normal. Given the history of anterior communicating artery aneurysm, no evidence of subarachnoid hemorrhage i n the FLAIR images CRANIOCERVICAL JUNCTION: No significant abnormality. VASCULAR FLOW-VOIDS: No significant abnormality. ORBITS: No significant abnormality of visualized orbits. SINUSES / MASTOIDS: No significant abnormality of visualized sinuses and mastoid air cells. ADDITIONAL FINDINGS: None. IMPRESSION: 1. No acute focal parenchymal lesion in the brain MRA HEAD WITHOUT CONTRAST HISTORY: Aneurysm described in the CTA of the head COMPARISON: CTA of the head TECHNIQUE: Routine MRA of the head is performed. 3-D/MIP reformats postprocessed. CONTRAST: None. FINDINGS: Intracranial vertebral arteries: No significant abnormality. Basilar artery: No significant abnormality. Posterior cerebral arteries: No significant abnormality. Intracranial internal carotid arteries: No significant abnormality. Anterior cerebral arteries: Both A1 segments are normal; at the junction of right A1 and A2 segment, approximately 6 mm sized aneurysm projecting towards the left side. Some of left the A1 and A2 segmen t about 5 mm above the aneurysm Middle cerebral arteries: No significant abnormality. Variants and anomalies:None Additional findings: None. IMPRESSION: 6 mm aneurysm at the junction of right A1 and A2 segment projecting towards the left side No vasospasm Signer Name: Román Jurado MD Signed: 11/26/2021 4:22 PM Workstation Name: [id number]
--- NOTE | 2021-11-26 18:08 | Electrocardiograph Report ---
[facility] Test Date: 2021-11-26 Test Time: 07:49:43 Pat Name: RICARDO BOLANOS Department: Room: A454 1 Gender: F Standards Analyst: MARKELL : 1960 Requested By: KEILA BUNN Order Number: [id number] Reading MD: Zoila Beckham Measurements Intervals [place] Rate: 57 P: -11 [place]: 166 QRS: 4 QRSD: 86 T: 26 QT: 459 QTc: 449 Interpretive Statements Sinus rhythm Early repolarization ST change Compared to ECG 04/22/2021 19:32:07 No significant changes Electronically Signed On 11-26-2021 18:08:07 EDT by Zoila Beckham
[2021-11-27] MEDS: SODIUM CHLORIDE 0.9% 1000 ML 1,000 ML IV SCH (02:20)
[2021-11-27 04:53] LABS: Basophils % (Auto) 0.5 % (0.0-1.8); Eosinophils # (Auto) 0.2 K/mm3 (0.0-0.4); Eosinophils % (Auto) 4.1 % (0.0-4.3); Hemoglobin 11.9 gm/dl (10.1-14.3); Lymphocytes # (Auto) 1.6 K/mm3 (1.2-5.4); Lymphocytes % (Auto) 32.9 % (13.4-35.0); Mean Corpuscular HGB Conc 32 % (30-34); Mean Corpuscular Volume 92 fl (79-97); Monocytes # (Auto) 0.6 K/mm3 (0.0-0.8); Monocytes % (Auto) 11.6 % (0.0-7.3); Platelet Count 229 K/mm3 (140-440); Red Blood Count 4.03 M/mm3 (3.65-5.03); Red Cell Distribution Width 15.4 % (13.2-15.2)
[2021-11-27 05:13] LABS: BUN/Creatinine Ratio 13; Blood Urea Nitrogen 13 mg/dL (7-17); Hemolysis Index 8
[2021-11-27 08:17] VITALS: BP 119/58
[2021-11-27] MEDS: HEPARIN 5,000 UNIT/1 ML VIAL SUB-Q SCH (09:33)
[2021-11-27] MEDS: FAMOTIDINE 20 MG TAB PO SCH (09:33)
[2021-11-27] MEDS: ASPIRIN 325 MG TAB PO SCH (09:34)
[2021-11-27] MEDS: COLCHICINE 0.6 MG TAB PO SCH (12:07)
[2021-11-27] MEDS: FENOFIBRATE 48 MG TAB PO SCH (12:07)
--- NOTE | 2021-11-27 12:53 | Discharge Summary ---
Providers - Providers Date of Admission: 11/26/21 04:18 Date of discharge: 11/27/21 Attending physician: KRISTA ANGEL 11/26/21 04:18 Consult to Physician [CONS] Routine Comment: Consulting Provider: TANISHA WERNER Physician Instructions: Reason For Exam: cva Occupational Therapy Evaluate and Treat [CONS] Routine Comment: Reason For Exam: Neuro deficits Physical Therapy Evaluation and Treat [CONS] Routine Comment: Reason For Exam: Neuro deficits 11/26/21 09:04 Consult to Physician [CONS] Routine Comment: Consulting Provider: LADY WORLEY Physician Instructions: Reason For Exam: fracture of left foot toe 11/26/21 09:11 Consult to Physician [CONS] Routine Comment: Consulting Provider: YIFAN REESE II Physician Instructions: Reason For Exam: brain aneurysm 11/26/21 11:18 Speech Therapy Evaluation and Treat [CONS] Routine Reason For Exam: dyshpagia Primary care physician: JAZMIN PHIPPS Hospitalization Condition: Stable Hospital course: 61 with history of hypertension, diabetes, gout, high cholesterol was brought to the emergency room because of fall in kitchen at 22.30. She says she passed out. Noted by EMS to have left droop and slurring of speech. No unilateral weakness noted. Patient denies blood thinner use. Initial CT scan is negative, subsequently patient was seen and evaluated by the ER physician so we are going to admit the patient we will put the patient on CVA pathway we consult neurology for evaluation and order MRI of the brain Disposition: 06 HOME HEALTH CARE SERVICE Final Discharge Diagnosis (Prints w/discharge instructions): --Syncope likely vasovagal. --TIA, MRI brain normal. --Intracranial aneurysm, incidental finding. --Hypertension. --Hyperlipidemia. --Diabetes mellitus type 2. --Left fourth toe proximal fracture Exam - Constitutional Vitals: Temp Pulse Resp BP Pulse Ox 97.9 F 61 16 119/58 98 11/27/21 08:15 11/27/21 08:15 11/27/21 08:15 11/27/21 08:15 11/27/21 09:06 Plan Activity: fall precautions Weight Bearing Status: Non-Weight Bearing Diet: low fat, low salt Durable Medical Equipment Needed Upon Discharge: Walker-Rolling, Bedside Commode, other (cast shoe/walking boot for left foot) Follow up with: JAZMIN PHIPPS MD [Primary Care Provider] - 7 Days YIFAN REESE II, MD [Staff Physician] - 7 Days LADY WORLEY MD [Staff Physician] - 7 Days Prescriptions: Aspirin EC [Halfprin EC] 81 mg PO QDAY #30 tablet. traMADoL [Ultram 50 MG tab] 50 mg PO Q6HR PRN #14 tablet PRN Reason: Pain
--- NOTE | 2021-11-27 14:22 | Consultation ---
History of Present Illness - HPI History of present illness: ORTHOPAEDIC CONSULT Assessment: 1. Proximal phalanx fracture fourth toe, LEFT foot; 2. Fall at home with possible stroke work-up has etiology for the actual fall; Discussion: This is a 61-year-old female who sustained a fall at home after she described slurred speech and facial droop. The only injury to any of the extremities appears to be the left foot where she has no deformity but mild to moderate pain and swelling involving the fourth toe; x-rays revealed a simple fracture proximal phalanx for the fourth toe, left foot. No other fractures or abnormalities orthopedically. Examination in the hospital bed showed a pleasant middle-aged female awake and alert easy to talk to with no signs of of any constitutional changes due to a syncopal episode? She has no deformity in the left foot with minimal swelling at the base of the fourth toe and tenderness to palpation over the proximal phalanx. She is able to wiggle the toes on the left foot including the fourth toe. The skin shows no change. There is no ecchymoses. X-rays show a simple transverse fracture minimally displaced proximal right phalanx for the left fourth toe. No other abnormalities noted. Past History Past Medical History: diabetes, hypertension, hyperlipidemia, other (Gout) Past Surgical History: Other (C SECTION X 2 / CYST REMOVAL X 1 / GASTRIC SLEEVE) Social history: other (Never a smoker) Family history: no significant family history Medications and Allergies Allergies Allergy/AdvReac Type Severity Reaction Status Date / Time naproxen [From Aleve] Allergy Hives Verified 04/22/21 17:09 Home Medications Medication Instructions Recorded Confirmed Last Taken Type Colchicine [Colcrys] 0.6 mg PO DAILY 04/24/21 11/26/21 Unknown History Famotidine [Pepcid] 10 mg PO DAILY 04/24/21 11/26/21 Unknown History Fenofibrate 40 mg PO DAILY 04/24/21 11/26/21 Unknown History Pravastatin [Pravachol] 20 mg PO QHS 04/24/21 11/26/21 Unknown History Ondansetron [Zofran ODT TAB] 4 mg PO Q8HR PRN #14 tab.rapdis 05/24/21 11/26/21 Unknown Rx Aspirin EC [Halfprin EC] 81 mg PO QDAY #30 tablet. 11/27/21 Unknown Rx traMADoL [Ultram 50 MG tab] 50 mg PO Q6HR PRN #14 tablet 11/27/21 Unknown Rx Active Meds: Active Medications Acetaminophen (Acetaminophen 325 Mg Tab) 650 mg PO Q4H PRN PRN Reason: Pain MILD(1-3)/Fever >100.5/WALKER Last Admin: 11/27/21 09:34 Dose: 650 mg Aspirin (Aspirin 325 Mg Tab) 325 mg PO QDAY [facility] Last Admin: 11/27/21 09:34 Dose: 325 mg Atorvastatin Calcium (Atorvastatin 40 Mg Tab) 40 mg PO QHS [facility] Last Admin: 11/26/21 22:05 Dose: 40 mg Colchicine (Colchicine 0.6 Mg Tab) 0.6 mg PO DAILY [facility] Last Admin: 11/27/21 12:07 Dose: 0.6 mg Famotidine (Famotidine 20 Mg Tab) 20 mg PO BID [facility] Last Admin: 11/27/21 09:33 Dose: 20 mg Fenofibrate (Fenofibrate 48 Mg Tab) 48 mg PO DAILY [facility] Last Admin: 11/27/21 12:07 Dose: 48 mg Heparin Sodium (Porcine) (Heparin 5,000 Unit/1 Ml Vial) 5,000 unit SUB-Q Q12HR [facility] Last Admin: 11/27/21 09:33 Dose: 5,000 unit Hydromorphone HCl (Hydromorphone 1 Mg/1 Ml Inj) 0.5 mg IV Q3H PRN PRN Reason: Pain , Severe (7-10) Sodium Chloride (Nacl 0.9% 1000 Ml) 1,000 mls @ 100 mls/hr IV DIRECT [facility] Last Admin: 11/27/21 02:20 Dose: 100 mls/hr Morphine Sulfate (Morphine 2 Mg/1 Ml Inj) 2 mg IV Q4H PRN PRN Reason: Pain, Moderate (4-6) Ondansetron HCl (Ondansetron 4 Mg/2 Ml Inj) 4 mg IV Q8H PRN PRN Reason: Nausea And Vomiting Sodium Chloride (Sodium Chloride 0.9% 10 Ml Flush Syringe) 10 ml IV BID [facility] Last Admin: 11/27/21 09:34 Dose: 10 ml Sodium Chloride (Sodium Chloride 0.9% 10 Ml Flush Syringe) 10 ml IV PRN PRN PRN Reason: LINE FLUSH
== END 2021-11-27 15:30 | disposition home or self-care (01) | DRG 92 ==
LOC: ED 23:32 → 4A 11-26 04:18
PROVIDERS: ADMIT Hospitalist; ATTEND Internal Medicine
DX: I67.1 Cerebral aneurysm, nonruptured (principal); G45.9 Transient cerebral ischemic attack, unspecified; I10 Essential (primary) hypertension; E11.9 Type 2 diabetes mellitus without complications; E78.5 Hyperlipidemia, unspecified; E78.00 Pure hypercholesterolemia, unspecified; S92.912A Unspecified fracture of left toe(s), initial encounter for closed fracture; X58.XXXA Exposure to other specified factors, initial encounter; Y93.89 Activity, other specified; Z88.8 Allergy status to other drugs, medicaments and biological substances; Y92.89 Other specified places as the place of occurrence of the external cause; Y99.8 Other external cause status
CPT/HCPCS: 36415; 70450; 70496; 70498; 70544; 70551; 80048; 80053; 80320; 82550; 82553; 82962; 84484; 85025; 85610; 85670; 85730; 93005; 93306; 94760; G0378; Q0162; C8929; G0480; J1644; J7030; Q9967